=== PATIENT | male | born 2000 | race Caucasian/White ===

== ENCOUNTER 2018-07-25 16:57 | Day surgery (SDC) | payer OTHER ==
[~2018-07-25 16:57] MED LIST: Dexamethasone 20 MG/5 ML VIAL ONE; Lidocaine 1% PF 5 ML VIAL ONE; Ondansetron PF 4 MG/2 ML Vial ONE; PHENYLEPHRINE-NS 100 MCG/ML 10 ML SYRINGE ONE; PROPOFOL 200 MG/20 ML VIAL ONE; Rocuronium Bromide 10 MG/ML (10ML VIAL) ONE
[2018-07-25 17:24] LABS: #Basophils 0.1 thou/uL (0.0-0.2); #Eosinphils 0.1 thou/uL (0.0-0.7); #Lymphocytes 2.3 thou/uL (1.20-3.40); #Monocytes 0.7 thou/uL (0.11-0.59); #Neutrophils 7.8 thou/uL (1.40-6.50); %Basophils 0.7 % (0.0-1.0); %Eosinophils 0.6 % (0.0-10.0); %Lymphocytes 20.8 % (28.0-48.0); %Monocytes 6.4 % (0.0-4.0); %Neutrophils 71.6 % (31.0-61.0); Hemoglobin 15.2 g/dL (14.0-18.0); Mean Corpuscular HGB CONC 34.2 g/dL (32.0-36.0); Mean Corpuscular Hemoglobin 31.2 pg (25.0-35.0); Mean Corpuscular Volume 91.1 fL (78.0-98.0); Mean Platelet Volume 7.4 fL (7.4-10.4); Platelet Count 327 thou/uL (130-400); RBC Distribution Width 11.3 % (11.5-14.5); Red Blood Cell (RBC) Count 4.89 mill/uL (4.00-5.20); White Blood Cell (WBC) Count 10.9 thou/uL (4.8-10.8)
[2018-07-25] MEDS ORDERED: Ketorolac Tromethamine 30 MG/ML VIAL ONE (17:38)
[2018-07-25 17:47] LABS: ALT (SGPT) 162 U/L (8-55); AST (SGOT) 699 U/L (10-45); Albumin 4.7 g/dL (3.5-5.0); Alkaline Phosphatase 90 U/L (Less than 750); Anion Gap 17 mmol/L (10-20); BUN (Urea Nitrogen) 8 mg/dL (8.4-21.0); Bilirubin, Total 0.7 mg/dL (0.2-1.2); Calc. Creatinine Clearance 0 mL/min (70-130); Calcium 9.6 mg/dL (7.8-10.44); Carbon Dioxide 19 mmol/L (22-29); Chloride 106 mmol/L (98-107); Estimated GFR-MDRD Greater than 90; Globulin 2.9 g/dL (2.4-3.5); Glucose 91 mg/dL (70-105); Potassium 3.6 mmol/L (3.5-5.1); Protein, Total 7.6 g/dL (6.0-8.3); Sodium 138 mmol/L (136-145)
[2018-07-25] MEDS ORDERED: Ondansetron PF 4 MG/2 ML Vial ONE (18:34)
[2018-07-25] MEDS ORDERED: Morphine 4 MG/ML VIAL ONE (18:34)
[2018-07-25 18:38] LABS: Bilirubin Negative (Negative); Blood, Urine Large (Negative); Clarity CLEAR (Clear); Glucose, Urine (Dipstick) Negative (Negative); Leukocyte Small (Negative); Nitrite Negative (Negative); Protein, Urine (Dipstick) 100 mg/dL (Neg-Trace); Urobilinogen 0.2 mg/dL (0.2-1.0); pH, Urine 7.5 (5.0-9.0)
[2018-07-25 18:40] LABS: Bacteria/HPF None Seen HPF (None Seen); Hyaline Casts/LPF 0-3 HYALINE CAST LPF (0-3 Hyaline); RBC/HPF None Seen HPF (0-3); Squamous Epithelial None Seen HPF (0-3); WBC/HPF 0-3 HPF (0-3)
--- NOTE | 2018-07-25 18:40 | CT ---
CT ABDOMEN AND PELVIS NONCONTRAST: 07/25/2018 HISTORY: Left lower abdominal pain and hematuria. The patient also reports pain in left testicle. COMPARISON: None available. FINDINGS: The lung bases are clear. The osseous structures are intact. The liver, spleen, pancreas, bilateral adrenal glands, kidneys, and decompressed urinary bladder demo nstrate a grossly normal, nonenhanced CT appearance. While the ureters are unable to be visualized d ue to lack of intraabdominal fat, there are no suspicious calcifications seen along the expected cour se of either ureter, and there is no hydronephrosis. The appendix is visualized and normal in caliber. No free fluid is visualized. No obvious enlarged lymph nodes are seen. IMPRESSION: No renal or ureteral calculi are seen bilaterally, and there is no hydronephrosis. POS: MICHAEL
--- NOTE | 2018-07-25 18:48 | ULT ---
TESTICULAR ULTRASOUND: 07/25/2018 HISTORY: Left testicular pain. FINDINGS: The testicles demonstrate a symmetric and homogeneous echotexture bilaterally without evidence of a t esticular mass. The right testicle measures 4.7 cm x 2.9 cm x 2.3 cm, with the left testicle measuri ng 4.6 cm x 2.9 cm x 2.8 cm. There is diminished flow within the left testicle, compared to the right testicle, on color-flow eval uation. Arterial and venous flow are documented within the right testicle, with spectral analysis an d Doppler evaluation. While arterial flow is documented in the left testicle, the flow is difficult to detect throughout the examination, with flow not detected until the end of the sonographic evaluat ion of the testicles. The right epididymis has a normal sonographic appearance. The left epididymis is not well seen but i s also grossly normal in appearance. There is no evidence of a hydrocele. IMPRESSION: 1. Asymmetric and decreased flow in the left testicle compared to the right testicle. While arteria l and venous flow is documented in the left testicle, diminished flow and difficulty in detecting hilda w may be attributable to intermittent torsion and detorsion. 2. Normal appearing right testicle with arterial and venous waveforms demonstrated. The above findings were discussed with Dr. Brown on 07/25/2018 at 1829 hours, including findings t hat may be related to intermittent torsion and detorsion of the left testicle. CODE CR POS: SOM
[2018-07-25] MEDS ORDERED: Fentanyl 100 MCG/2 ML VIAL ONE (19:08)
[2018-07-25] MEDS ORDERED: Bupivacaine 0.25% HCL 30 ML VIAL ONE (19:09)
[2018-07-25] MEDS ORDERED: Midazolam HCl 2 mg/2 ml Vial ONE (19:35)
[2018-07-25] MEDS ORDERED: Meperidine HCl/PF 25 MG/ML VIAL ONE (20:59)
--- NOTE | 2018-07-25 21:28 | OP ---
DATE OF PROCEDURE: 07/25/2018 PREOPERATIVE DIAGNOSIS: Left testicular torsion. POSTOPERATIVE DIAGNOSIS: Left testicular torsion. PROCEDURE: Scrotal exploration, bilateral orchiopexy, revision circumcision. HISTORY: Mr. Matthews is a 17-year-old gentleman who presents to the emergency room with acute onset of left-sided scrotal pain. He also had gross hematuria. Denies any dysuria. Urinalysis demonstrated red blood cells, but no obvious infection. The patient underwent a CT scan to rule out stone. There was no evidence of ureteral stone or hydronephrosis or renal stones. He underwent scrotal ultrasound that demonstrated diminished flow to the left testicle. His examination was not particularly remarkable. I have recommended scrotal exploration, although his findings were most consistent with a torsion that had spontaneously de-torsed. 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 PROCEDURE: The patient given general anesthesia and IV antibiotics. He was sterilely prepped and draped in the supine position. A midline scrotal incision was made and carried down to the left testicle, which was brought out through the scrotal incision and evaluated. The left testicle was without any ischemic changes. It was in normal orientation. There were no masses noted. The testicle was then placed back in its anatomic position in the left hemiscrotum and orchiopexy was performed with 3 nylon sutures, 2 laterally and 1 inferiorly. The right testicle was then exposed and brought out through the scrotal incision. It was also normal on evaluation. There was no evidence of tumor or infection. The patient was placed back in the right hemiscrotum and carefully pexied again with 3 sutures, 2 laterally, 1 inferiorly. After this was completed, the scrotal incision was closed in 2 layers, first with a 3-0 chromic suture bringing the fascial layers together and then interrupted 4-0 chromic suture used to bring the skin edges together. The penile adhesion was then excised. After excision, a small chromic suture was utilized to close the small hole in the skin. The adhesion was cut with sharp scissors at the glans and then trimmed from the foreskin. This left a small opening that was closed with 4-0 chromic suture. Local anesthesia was used in both incision sites. The patient tolerated the procedure well. Sterile dressings were placed. He was awakened in the operating room, transferred to recovery room in stable condition. COMPLICATIONS: None. ESTIMATED BLOOD LOSS: Minimal. Job ID: [id number]
--- NOTE | 2018-07-25 22:03 | CON ---
DATE OF CONSULTATION: 07/25/2018 CHIEF COMPLAINT: Left scrotal pain. HISTORY: Mr. Matthews is a 17-year-old gentleman, who developed acute onset of left-sided testicular pain at 04:30 p.m. today. He was working on his computer, got up to go to the bathroom, he voided red urine and then developed left-sided scrotal pain. The pain persisted, so he presented to the emergency room. In the emergency room, he underwent a urinalysis that demonstrated red blood cells and a CT scan and scrotal ultrasound. The CT scan was normal without evidence of stones and the ultrasound demonstrated diminished flow in the left testicle. The right testicle was normal. The patient also complains of some adhesions of the foreskin to the glans penis and would like this repaired if he requires surgical therapy. He has no prior urologic history. PAST MEDICAL HISTORY: No chronic medical problems. PAST SURGICAL HISTORY: Knee surgery and closed reduction of right arm fracture. ALLERGIES: NO KNOWN DRUG ALLERGIES. SOCIAL HISTORY: Nonsmoker. Denies excessive alcohol use. Does not take any illicit drugs. He is a student at [employer], and lives here in town with his brother. REVIEW OF SYSTEMS: RESPIRATORY: No shortness of breath. GASTROINTESTINAL: Denies chronic constipation or diarrhea. CARDIOVASCULAR: Denies chest pain or palpitations. GENITOURINARY: Please see history of present illness. MUSCULOSKELETAL: Denies chronic joint or bone pain. PHYSICAL EXAMINATION: GENERAL: He is awake and alert. He is in no distress. VITAL SIGNS: Temperature 98.6, blood pressure 130/82, pulse 82, respiratory rate 16. HEENT: Normocephalic and atraumatic. NECK: Supple. No masses. CHEST: Clear to auscultation. CARDIOVASCULAR: Regular rate and rhythm. ABDOMEN: Soft, nontender. No palpable masses. Liver and spleen are not palpable. No abdominal tenderness noted. : He has circumcised penis with adhesions of the foreskin on the left side to the glans penis. The scrotum demonstrates no erythema. Left testicle is not elevated. There is no cremasteric reflex on either right or left side. There is tenderness to palpation of the left testicle. LABORATORY DATA: Urinalysis; rbc is noted. IMPRESSION: Acute onset of left testicular pain. The exam is not impressive for torsion as there is not significant swelling to the testicle nor is a testicle elevated. It is possible that the patient had a torsion that has now de-torsed. Regardless, the ultrasound findings are worrisome and for that reason, I recommended exploration with the possible detorsion and bilateral orchiopexy. The patient understands the risks, potential limitations, alternatives. He wishes to proceed and has also requested that he have the penile adhesions taken down while under anesthesia. I have also discussed this procedure with him. He understands risks, potential limitations, alternatives, complication, and wished to proceed. PLAN: Scrotal ultrasound, bilateral orchiopexy, revision circumcision. Job ID: [id number]
[2018-07-28 02:54] LABS: Chlamydia by PCR Not Detected (NotDetected); GC by PCR Not Detected (NotDetected)
== END 2018-07-25 21:50 | disposition home or self-care (01) ==
LOC: ERS 16:57 → SDC/OP 20:34
PROVIDERS: ATTEND Urology
PROC: 0VQC0ZZ Repair Bilateral Testes, Open Approach (ICD-10-PCS; principal; 2018-07-25)
PROC: 0VNTXZZ Release Prepuce, External Approach (ICD-10-PCS; principal; 2018-07-25)
DX: N44.00 Torsion of testis, unspecified (principal); N47.5 Adhesions of prepuce and glans penis; Z88.1 Allergy status to other antibiotic agents
CPT/HCPCS: 36415; 74176; 76870; 80053; 81003; 81015; 85025; 87086; 87491; 87591; 93976; 96361; 96374; 96375; J1100; J1885; J2001; J2175; J2250; J2270; J2405; J2704; J3010; S0020